=== PATIENT | female | born 1995 | race Two or more races ===

== ENCOUNTER 2018-02-09 23:27 | Observation (INO) | payer SELFPAY | END 2018-02-10 00:28 | disposition home or self-care (01) | LOC: FLD 23:27 | PROVIDERS: ADMIT Obstetrics & Gynecology; ATTEND Obstetrics & Gynecology | DX: O46.93 Antepartum hemorrhage, unspecified, third trimester (principal); Z3A.30 30 weeks gestation of pregnancy | CPT/HCPCS: G0378 ==